=== PATIENT | male | born 1980 | race Two or more races ===

== ENCOUNTER 2016-07-14 08:33 | Emergency (ER) | payer SELFPAY ==
[~2016-07-14] VITALS: Ht 177.8 cm; Wt 95.3 kg
[2016-07-14 09:15] VITALS: BP 156/86
[2016-07-14] MEDS ORDERED: CIPR500T94 PO (09:28)
--- NOTE | 2016-07-14 09:29 | PHYS DOC ---
Past Medical History Past Medical History: No Pertinent History Past Surgical History: No Surgical History Alcohol Use: Occasionally Drug Use: None Adult General Chief Complaint Chief Complaint: FOOT INJURY PAIN HPI HPI Patient is a 36 year old male who presents with puncture wound to the right foot after stepping on a nail 2 days ago with work boots on. Patient denies any fever or drainage from the area. His tetanus is not up-to-date. Review of Systems Review of Systems Constitutional: Denies fever or chills [] Musculoskeletal: Denies back pain or joint pain [] Integument: puncture wound to the right foot Neurologic: Denies headache, focal weakness or sensory changes [] Endocrine: Denies polyuria or polydipsia [] Current Medications Current Medications Current Medications Medications (Trade) Dose Ordered Sig/Vivian Start Time Stop Time Status Last Admin Dose Admin Diphtheria/ Tetanus/Acell Pertussis (Boostrix) 0.5 ml ONCE ONCE 07/14/16 09:30 07/14/16 09:31 UNV Allergies Allergies Allergies Coded Allergies Type Severity Reaction Last Updated Verified No Known Drug Allergies 07/14/16 No Physical Exam Physical Exam Constitutional: Well developed, well nourished, no acute distress, non-toxic appearance. [] Skin: Right dorsal foot between the third and fourth metatarsals with a tiny puncture wound approximately 0.2 x 0.2 cm. There is no wound on top of the foot. There is trace erythema around the puncture wound. There is no warmth on the wound. There is trace erythema on top of the foot. There is no warmth on top of the foot. There is slight tenderness to the puncture wound. Full range of motion to the foot and toes. +2 right pedal pulse. Cap refill less than 2 seconds the right lower extremity. Sensation intact to the right lower extremity. No streaking noted of the foot. Back: No tenderness, no CVA tenderness. [] Extremities: No tenderness, no cyanosis, no clubbing, ROM intact, no edema. [] Neurologic: Alert and oriented X 3, normal motor function, normal sensory function, no focal deficits noted. [] Psychologic: Affect normal, judgement normal, mood normal. [] Current Patient Data Vital Signs Vital Signs Date Time Temp Pulse Resp B/P Pulse Ox O2 Delivery O2 Flow Rate FiO2 07/14/16 09:15 99.3 65 15 100 Room Air 99.3 EKG EKG [] Radiology/Procedures Radiology/Procedures [] Course & Med Decision Making Course & Med Decision Making Pertinent Labs and Imaging studies reviewed. (See chart for details) Patient has a puncture wound to the right foot after stepping on a nail with work boots on. There is trace signs of infection on the foot. There is no streaking to the foot. He was given tetanus in the ED and discharged with Cipro. Instructed to keep the area clean and dry. Provided return precautions. Discharged in stable condition. Dragon Disclaimer Dragon Disclaimer This electronic medical record was generated, in whole or in part, using a voice recognition dictation system. Departure Departure Impression: Primary Impression: Puncture wound of right foot Additional Impression: Right foot infection Disposition: HOME, SELF-CARE Condition: STABLE Referrals: NO PCP (PCP) Follow-up with your own doctor in one week Patient Instructions: Puncture Wound, [id number] Additional Instructions: You were seen for a puncture wound of the right foot. Keep the area clean and dry. You can apply Neosporin to the area twice a day. Your tetanus was updated today. Monitor the area for signs and symptoms of worsening infection including streaking on the foot, increased/worsening redness, purulent drainage from the foot, return to the emergency room if you develop any of these symptoms or a fever. Complete your antibiotics. Follow-up with your own doctor in a week. Scripts Ciprofloxacin Hcl (Cipro)500 Mg Tablet1 Tab PO BID #20 TAB Prov:RALPH RAJAN APRN 07/14/16 Problem Qualifiers Primary Impression: Puncture wound of right foot Encounter type: initial encounter Qualified Code: S91.331A - Puncture wound without foreign body, right foot, initial encounter RALPH RAJAN STEM FRAZER Jul 14, 2016 09:29
[2016-07-14] MEDS ORDERED: DIPHTH,PERTUSS(ACELL),TET TOX 0.5 ML DISP.SYRIN. VAX IM ONE (09:30)
== END 2016-07-14 09:35 | disposition home or self-care (01) ==
LOC: ER 08:33
DX: S91.331A Puncture wound without foreign body, right foot, initial encounter (principal); L08.9 Local infection of the skin and subcutaneous tissue, unspecified; W45.0XXA Nail entering through skin, initial encounter; Y93.89 Activity, other specified; Y92.89 Other specified places as the place of occurrence of the external cause; Y99.8 Other external cause status
CPT/HCPCS: 90471; 90715; 99283-25